=== PATIENT | female | born 1940 | race Caucasian/White ===

== ENCOUNTER → 2016-08-28 | Outpatient (CLI) | payer MEDICARE ==
--- NOTE | 2016-08-28 13:35 | KCIC ---
Bilateral digital screening mammograms with CAD: HISTORY Routine screening. COMPARISON Comparison is made to previous studies dated 08/26/2015 and 08/26/2014. FINDINGS Breast density category B. The skin and nipples show no abnormalities. No abnormal lymph nodes are seen in the axilla. The breast parenchyma shows scattered fibroglandular density. Coarse calcifications is again seen in the upper inner quadrant of the right breast. There are no new dominant masses, suspicious calcifications or architectural distortions. IMPRESSION No evidence of malignancy. Recommend routine annual mammographic screening. This study was interpreted with the benefit of Computerized Aided Detection (CAD). Mammography is not 100% sensitive in detecting breast cancer. Therefore, a self breast exam and a clinical breast exam are very important. A negative mammogram does not negate a clinically suspicious finding and should not result in a delay in biopsying a clinically suspicious abnormality. BI-RADS category 2: Benign. This patient's information has been entered into a reminder system for the patient to be notified with the results of this examination and a target date for her next mammograms. Electronically signed by: Chloe Hernández MD (Aug 28, 2016 13:34:12)
== END | disposition home or self-care (01) ==
LOC: KCIC MAMMO 12:32
PROVIDERS: ATTEND Family Medicine
DX: Z12.31 Encounter for screening mammogram for malignant neoplasm of breast (principal)
CPT/HCPCS: G0202; 77067

== ENCOUNTER 2017-08-03 15:02 | Emergency (ER) | payer MEDICARE ==
[2017-08-03] MEDS: KETOROLAC 60 MG/2 ML INJ. IM ×2 (16:28)
== END 2017-08-03 18:34 | disposition home or self-care (01) ==
LOC: ER 15:02
DX: S76.012A Strain of muscle, fascia and tendon of left hip, initial encounter (principal); M62.830 Muscle spasm of back; E78.00 Pure hypercholesterolemia, unspecified; M19.90 Unspecified osteoarthritis, unspecified site; M06.9 Rheumatoid arthritis, unspecified; Z88.0 Allergy status to penicillin; X58.XXXA Exposure to other specified factors, initial encounter; Y93.89 Activity, other specified; Y92.89 Other specified places as the place of occurrence of the external cause; Y99.8 Other external cause status
CPT/HCPCS: 73502; 96372; 99284-25; J1885

== ENCOUNTER → 2017-08-29 | Outpatient (CLI) | payer MEDICARE | END | disposition home or self-care (01) | LOC: KCIC MAMMO 09:38 | DX: Z12.31 Encounter for screening mammogram for malignant neoplasm of breast (principal) | CPT/HCPCS: 77067 ==

== ENCOUNTER → 2017-09-13 | Outpatient (CLI) | payer MEDICARE | END | disposition home or self-care (01) | LOC: KCIC MRI 12:20 | DX: M51.16 Intervertebral disc disorders with radiculopathy, lumbar region (principal); M48.061 Spinal stenosis, lumbar region without neurogenic claudication; M25.78 Osteophyte, vertebrae | CPT/HCPCS: 72148 ==

== ENCOUNTER → 2017-10-18 | Outpatient (CLI) | payer MEDICARE ==
[~2017-10-18] MED LIST: IOHEXOL 180 MG/ML 10 ML VIAL.; methylPREDNISolone ACETATE 40 MG/ML VIAL.; methylPREDNISolone ACETATE 80 MG/ML VIAL.
== END ==
LOC: PNCL 09:27
DX: M51.16 Intervertebral disc disorders with radiculopathy, lumbar region (principal); I10 Essential (primary) hypertension; E89.0 Postprocedural hypothyroidism; M54.5 Low back pain; M79.662 Pain in left lower leg; Z88.0 Allergy status to penicillin; Z91.040 Latex allergy status; Z90.49 Acquired absence of other specified parts of digestive tract; Z98.49 Cataract extraction status, unspecified eye
CPT/HCPCS: 62323; J1030; J1040; Q9965

== ENCOUNTER → 2017-11-01 | Outpatient (CLI) | payer MEDICARE | END | disposition home or self-care (01) | LOC: PNCL 09:41 | DX: M51.16 Intervertebral disc disorders with radiculopathy, lumbar region (principal) | CPT/HCPCS: G0463 ==

== ENCOUNTER → 2018-01-24 | Outpatient (CLI) | payer MEDICARE | END | disposition home or self-care (01) | LOC: KCIC US 10:46 | DX: E04.2 Nontoxic multinodular goiter (principal); I10 Essential (primary) hypertension; E78.00 Pure hypercholesterolemia, unspecified; E89.0 Postprocedural hypothyroidism; Z90.49 Acquired absence of other specified parts of digestive tract | CPT/HCPCS: 76536 ==

== ENCOUNTER → 2018-02-11 | Outpatient (CLI) | payer MEDICARE ==
[2017-08-03 18:06] VITALS: BP 147/67
[~2018-02-11] MED LIST changes: +ASPI-482 PO; +CALC-584 PO; +CALC1TAB75 PO; +CYCL10TA2 PO; +FOLI1TAB16 PO; +IBUP200T77 PO; -IOHEXOL 180 MG/ML 10 ML VIAL.; +LIDOCAINE 1% Multi-Dose 50 ML VIAL. INJ ONE; +LOVA40TA2 PO; +METH2.5T PO; +METO-269 PO; -methylPREDNISolone ACETATE 40 MG/ML VIAL.; -methylPREDNISolone ACETATE 80 MG/ML VIAL.
--- NOTE | 2018-02-11 12:45 | RAD ---
Ultrasound-guided right thyroid biopsy, 02/11/2018: History: Multinodular goiter The previous ultrasound study demonstrated multiple nodules within both lobes of the gland. We first targeted a large dominant bilobed heterogeneous nodule in the right lobe. Under local anesthesia, aseptic conditions and sonographic guidance a 25-gauge needle was passed into this nodule via an anteromedial approach. 4 separate aspirates were obtained from this right nodule in this manner with the materials sent to pathology for evaluation. Ultrasound-guided left thyroid biopsy, 02/11/2018: The left lobe of the gland demonstrated multiple confluent nodules. We targeted the most discrete nodule in the lower pole of the left lobe of the gland. Under local anesthesia, aseptic conditions and sonographic guidance a 25-gauge was passed into this area via an anteromedial approach. 4 separate aspirates were obtained in this manner and sent to pathology for evaluation. Hemostasis was then obtained. The patient tolerated the procedures well and left the department in good condition. The pathology results are pending.
--- NOTE | 2018-02-12 16:07 | PATHOLOGY ---
Note [facility] Accession Number: [id number] TESTS RESULT FLAG UNITS REF RANGE LAB Clinician Provided Cytology Information No. of containers..01 Other (Miscellaneous) Source: LT THYROID DIAGNOSIS: LT THYROID NEGATIVE FOR MALIGNANT CELLS. [place] CATEGORY II. SPECIMEN CONSISTS OF BENIGN FOLLICULAR CELLS, HEMOSIDERIN-LADEN MACROPHAGES, COLLOID, AND BLOOD. THIS PATTERN IS CONSISTENT WITH A COLLOID NODULE. COMMENT; THE SPECIMEN IS POORLY CELLULAR AND THE MATERIAL ASPIRATED MAY NOT BE PRODUCT MANAGER. SUGGEST CLINICAL CORRELATION AND FOLLOW UP CLINICALLY INDICATED. Pathologist ICD10: 02 E04.1 Signed out by: Charles Cook MD, Pathologist NPI- [id number] Performed by: Ashtyn Laura, Rail Bender ([facility]) Gross description: 01 30ML, PINK, CLOUDY /LCS FLAG LEGEND: L-Low Normal,H-High Normal,LL-Alert Low,HH-Alert High <-Panic Low,>-Panic High,A-Abnormal,AA-Critical Abnormal Performed at: [facility] [address] [place] [address] Nirav Fontaine MD, 02 MECHE [facility] [address] [address] Ezio Burgos MD, Performed at: [address] [id number] MD Nirav Fontaine MD Phone: [phone]
== END | disposition home or self-care (01) ==
LOC: US 14:00
PROVIDERS: ATTEND Family Medicine
DX: E04.2 Nontoxic multinodular goiter (principal); I10 Essential (primary) hypertension; E89.0 Postprocedural hypothyroidism; E78.00 Pure hypercholesterolemia, unspecified; Z88.0 Allergy status to penicillin; Z90.49 Acquired absence of other specified parts of digestive tract; Z79.82 Long term (current) use of aspirin; Z79.1 Long term (current) use of non-steroidal anti-inflammatories (NSAID); Z79.899 Other long term (current) drug therapy
CPT/HCPCS: 10022; 60300; 76942; 88173

== ENCOUNTER → 2018-03-12 | Outpatient (CLI) | payer MEDICARE ==
[2017-08-03 18:06] VITALS: BP 147/67
[~2018-03-12] MED LIST changes: +IOHEXOL 180 MG/ML 10 ML VIAL. ONE; -LIDOCAINE 1% Multi-Dose 50 ML VIAL. INJ ONE; +LIDOCAINE 2% PF 2ML VIAL. ONE; +methylPREDNISolone ACETATE 40 MG/ML VIAL. ONE; +methylPREDNISolone ACETATE 80 MG/ML VIAL. ONE
--- NOTE | 2018-03-12 19:10 | PAIN ---
DATE OF SERVICE: 03/12/2018 DIAGNOSES: Lumbar radiculopathy with lumbar herniated disk, lumbar degenerative disk disease. HISTORY OF PRESENT ILLNESS: The patient is a 77-year-old female who returns for followup status post lumbar epidural steroid injection x 1, 10/18/2017. The patient did very well with near 100% improvement until the last 2 weeks, the pain began to return in the low back and left lower extremity, posterior gluteus, posterior lateral thigh, lateral anterior thigh, medial thigh and posterior calf on the left side only. The patient reports it is a 9 on a scale of 10 at its worst, 9 on average, 6 at its least and is a 9 today. The patient reports it is aching, sharp, dull, tight, shooting, becoming more severe and radiating into the left leg; worse with walking, standing, change in positions. Initially, she was doing very well, was increasing her activity distance walking, able to do household activities and recreational activities, traveling with much greater ease and comfort, again doing very well, almost 100% until the last 2 weeks. The patient reports no new motor or sensory deficits, does not awaken her from sleep at night. No new bowel or bladder incontinence or other complaints. PHYSICAL EXAMINATION: VITAL SIGNS: The patient's blood pressure 139/70, pulse 56, respirations 18, temperature is 98.3 degrees Fahrenheit, height is 5 feet 3 inches, weight is 108 pounds. GENERAL: The patient is awake, alert, oriented, appropriate, very pleasant demeanor. HEENT: Head is normocephalic, atraumatic. Extraocular movements intact and symmetrical. Oral cavity: Mucous membranes are moist and pink. Dentition is intact. NECK: Shows anterior throat supple without palpable lymphadenopathy noted. Swallow reflex is symmetrical. CHEST: Shows normal on inspection. Breath sounds clear to auscultation bilaterally. HEART: Shows S1, S2 clear. No murmurs auscultated. ABDOMEN: Soft, nontender, nondistended. No palpable organomegaly is noted. No rebound or guarding demonstrated. BACK: Shows spine grossly in the midline. Normal appearing thoracic kyphosis and lumbar lordotic curvature. Lumbar paraspinous musculature shows symmetrical on inspection, with palpation shows some moderate tenderness but only diffusely without radiation. EXTREMITIES: The patient's lower extremities show deep tendon reflexes at 2+ in the patella, 1+ tendo calcaneus tendons. Motor exam is approximately 4 on a scale 5 with left dorsiflexion, extension, 5/5 on the right. Options were discussed with the patient. The patient's old chart was reviewed as her current medication regimen and updated. Current review of systems is updated today as well. We will proceed with a lumbar epidural injection today with fluoroscopic guidance. Risks were again discussed including, but not limited to bleeding, infection, possibility of epidural hematoma and subsequent neurological compromise, dural puncture, headaches, spinal cord and/or nerve damage, side effects of steroid medication and poor results regarding pain control. The patient understands and wished to proceed. The patient to return to clinic in approximately 2 weeks for followup. She was counseled to return appointment, activity level and side effects to be aware of. DIAGNOSES: Lumbar radiculopathy with lumbar herniated disk and lumbar degenerative disk disease. PROCEDURE: Lumbar epidural steroid injection, translaminar approach L4-L5 level using C-arm fluoroscopic guidance under sterile prep and drape using local anesthetic. MEDICATION INJECTED: A total of 120 mg Depo-Medrol plus 10 mL of preservative-free normal saline and 2 mL of Isovue for contrast. CONDITION AT DISCHARGE: Stable. The patient tolerated the procedure well, had no complications. PIPO TRIMBLE MD DR: JAZZ/asim JOB#: [id number] / [id number]
== END | disposition home or self-care (01) ==
LOC: PNCL 13:07
PROVIDERS: ATTEND Anesthesiology
DX: M51.16 Intervertebral disc disorders with radiculopathy, lumbar region (principal); Z88.0 Allergy status to penicillin
CPT/HCPCS: 62323; J1030; J1040; J2001; Q9965

== ENCOUNTER → 2018-04-11 | Outpatient (CLI) | payer MEDICARE ==
[2017-08-03 18:06] VITALS: BP 147/67
[~2018-04-11] MED LIST changes: +IBUP-1027 PO; +LIDOCAINE 1% PF 2 ML VIAL. ONE; -LIDOCAINE 2% PF 2ML VIAL. ONE; +MULT1TAB52 PO
--- NOTE | 2018-04-12 00:34 | PAIN ---
DATE OF SERVICE: 04/11/2018 PROGRESS NOTE FOR PAIN CLINIC DIAGNOSES: Lumbar radiculopathy with lumbar degenerative disk disease and lumbar herniated disk. HISTORY OF PRESENT ILLNESS: The patient is a 77-year-old female who returns for followup status post lumbar epidural steroid injection x 2 first on 10/18/2017 and a second one on 03/12/2018. The patient did well with these reports the first one helped better than the last with about 99% improvement in the first but with this one only about 50% improvement, still pain in the low back, left lower extremity as it was previously. The patient reports it is 8-9 on a scale of 10 at its average, 9 on its worst, 2 when sitting and its least and is an 8 today. The patient reports it is aching, tingling, stabbing, shooting off and on with sitting and walking and has a cold wet sensation on the lower leg on the lateral aspect. The patient reports no new motor or sensory deficits and no new bowel or bladder incontinence or other complaints. There is still significant pain with walking, standing, change in positions. Initially, she was walking greater distances more easily doing household activities with greater ease and comfort but recently the pain is beginning to return. The patient reports no new changes and no bowel or bladder incontinence or other complaints. PHYSICAL EXAMINATION: VITAL SIGNS: The patient's blood pressure 151/80, pulse 68, respirations are 18 and temperature 97.9 degrees Fahrenheit. Height is 5 feet 3 inches and weighs 110 pounds. GENERAL: The patient is awake, alert, oriented, appropriate and very pleasant demeanor. HEENT: Head shows normocephalic and atraumatic. Extraocular muscles are intact and symmetrical. Oral cavity: Mucous membranes moist and pink. Dentition is intact. NECK: Shows anterior throat with a fairly palpable goiter and a well-healed surgical scar and both right and left fullness of the throat itself. CHEST: Shows normal on inspection. Breath sounds clear to auscultation bilaterally. HEART: Shows S1 and S2 clear. No murmurs auscultated. ABDOMEN: Soft, nontender and nondistended. No palpable organomegaly is noted. No rebound or guarding demonstrated. BACK: Shows spine grossly in the midline. Mild exaggeration of thoracic kyphosis. The patient's lumbar spine shows moderate tenderness with palpation bilaterally in the middle and lower distribution of the paraspinous muscles but only diffusely without atrophy or hypertrophy. The patient has good rotational motion bilaterally without significant increase in pain. EXTREMITIES: The patient's lower extremities show deep tendon reflexes at 2+ in the patellar, 1+ tendo-calcaneus tendons. Motor exam is strong with approximately 4 on a scale of 5 left dorsiflexion and extension, 5/5 on the right. Peripheral pulses are 1+. No peripheral edema is noted. Options were discussed with the patient. The patient's old chart was reviewed as well as her current medication regimen updated. Current review of systems updated today as well. We will proceed with a third in a series of lumbar epidural steroid injection today with fluoroscopic guidance. Risks were again discussed including, but not limited to bleeding, infection, possibility of epidural hematoma, subsequent neurological compromise, dural puncture, headaches, spinal cord and/or nerve damage, side effects of steroid medication and poor results regarding pain control. The patient understands and wished to proceed. The patient will return to the clinic in approximately 2 weeks for followup, was counseled as to return appointment, activity level and side effects to be aware of. DIAGNOSES: Lumbar radiculopathy with lumbar degenerative disk disease and lumbar herniated disk. PROCEDURE: Lumbar epidural steroid injection, translaminar approach, L4-L5 level using C-arm fluoroscopic guidance under sterile prep and drape using local anesthetic. MEDICATION INJECTED: A total of 120 mg Depo-Medrol plus 10 mL of preservative-free normal saline and 2 mL of Isovue for contrast. CONDITION AT DISCHARGE: Stable. The patient tolerated the procedure well and had no complications. PIPO TRIMBLE MD DR: JAZZ/asim JOB#: [id number] / [id number]
== END | disposition home or self-care (01) ==
LOC: PNCL 11:06
PROVIDERS: ATTEND Anesthesiology
DX: M51.16 Intervertebral disc disorders with radiculopathy, lumbar region (principal); Z88.0 Allergy status to penicillin
CPT/HCPCS: 62323; J1030; J1040; Q9965

== ENCOUNTER → 2018-06-13 | Outpatient (CLI) | payer MEDICARE ==
[2017-08-03 18:06] VITALS: BP 147/67
[~2018-06-13] MED LIST changes: +GABA-585 PO; +LEVO75TA5 PO; -LIDOCAINE 1% PF 2 ML VIAL. ONE
--- NOTE | 2018-06-13 14:41 | PAIN ---
DATE OF SERVICE: 06/13/2018 DIAGNOSES: Lumbar radiculopathy with lumbar degenerative disk disease, lumbar herniated disk. HISTORY OF PRESENT ILLNESS: The patient is a 77-year-old female who returns for a followup status post lumbar epidural steroid injections x 3, most recently on 04/11. The patient did very well with about 80% improvement after the last injection. The patient reports no new motor or sensory deficits or other complaints. The pain is returning now. She was initially increasing her distance walking, doing household activities, traveling with better ease and comfort. The patient reports it is beginning to return now in the low back and left lower extremity, in the posterior gluteus, posterior lateral thigh, lateral anterior thigh, anterior medial thigh, and medial lower leg. It is aching, sharp, shooting, stabbing, tingling, on and off in intensity, worse with walking and standing, better with sitting or lying down, does not awaken her from sleep at night. The patient reports no new motor or sensory deficits, no new bowel or bladder incontinence or other complaints. PHYSICAL EXAMINATION: VITAL SIGNS: The patient's blood pressure is 114/67, pulse is 71, respirations are 18, temperature is 98.0 degrees Fahrenheit, height is 5 feet 3 inches, weight is 112 pounds. GENERAL: The patient is awake, alert, oriented, appropriate, very pleasant demeanor. HEENT: Shows normocephalic, atraumatic. Extraocular movements are intact and symmetrical. Oral cavity shows mucous membranes are moist and pink. Dentition is intact. NECK: Shows anterior throat supple without palpable lymphadenopathy noted. Swallow reflex is symmetrical. CHEST: Shows normal on inspection. Breath sounds are clear to auscultation bilaterally. HEART: Shows S1, S2 clear. No murmurs auscultated. ABDOMEN: Soft, nontender, nondistended. No palpable organomegaly is noted. No rebound or guarding demonstrated. MUSCULOSKELETAL: Back shows spine grossly in the midline, normal appearing thoracic kyphosis and lumbar lordotic curvature. Lumbar paraspinous muscle shows symmetrical on inspection; on palpation shows some moderate tenderness diffusely, but without radiation. The patient has good rotational motion of lumbar spine, both laterally as well as extension and flexion. The patient's lower extremities show deep tendon reflexes at 2+ in the patellar, 1+ tendo-calcaneus tendons. Motor exam is strong with 4/5 on left and 5/5 on right dorsiflexion and extension. Peripheral pulses are 1+ posterior tibia. No peripheral edema is noted bilaterally. PLAN: Options were discussed with the patient. The patient's old chart was reviewed as her current medication regimen and updated. Current review of systems updated today as well. We will proceed with a first in the series of lumbar epidural steroid injection today with fluoroscopic guidance. Risks were again discussed including, but not limited to, bleeding, infection, possibility of epidural hematoma, subsequent neurological compromise, dural puncture, headaches, spinal cord and/or nerve damage, side effects of steroid medication and poor results regarding pain control. The patient understands and wished to proceed. The patient will return to clinic in approximately 2 weeks for a followup, was counseled on return appointment, activity level and side effects to be aware of. DIAGNOSES: Lumbar radiculopathy with lumbar degenerative disk disease, lumbar herniated disk. PROCEDURE: Lumbar epidural steroid injection, translaminar approach, L4-L5 level using C-arm fluoroscopic guidance under sterile prep and drape using local anesthetic. MEDICATION INJECTED: A total of 120 mg of Depo-Medrol plus 10 mL of preservative-free normal saline and 2 mL of Isovue for contrast. CONDITION AT DISCHARGE: Stable. The patient tolerated procedure well, had no complications. PIPO TRIMBLE MD DR: JAZZ/asim JOB#: [id number] / [id number]
== END | disposition home or self-care (01) ==
LOC: PNCL 10:05
PROVIDERS: ATTEND Anesthesiology
DX: M51.16 Intervertebral disc disorders with radiculopathy, lumbar region (principal); Z88.0 Allergy status to penicillin
CPT/HCPCS: 62323; J1030; J1040; Q9965

== ENCOUNTER → 2018-09-12 | Outpatient (CLI) | payer MEDICARE ==
[2017-08-03 18:06] VITALS: BP 147/67
[~2018-09-12] MED LIST changes: -IOHEXOL 180 MG/ML 10 ML VIAL. ONE; -methylPREDNISolone ACETATE 40 MG/ML VIAL. ONE; -methylPREDNISolone ACETATE 80 MG/ML VIAL. ONE
--- NOTE | 2018-09-12 13:18 | KCIC ---
Bilateral digital screening mammograms: Reason for examination: Routine screening. Comparison is made to previous studies dated 08/29/2017 and 08/28/2016. Interpretation was made with the benefit of CAD. The skin and nipples show no abnormalities. No abnormal axillary lymph nodes are seen. The breast parenchyma shows scattered fibroglandular density. (Breast density: Category B.) There are no dominant masses, suspicious calcifications or architectural distortions. Benign calcifications are seen. Impression: No evidence of malignancy. Recommend routine screening. BI-RADS Category 1: Negative. "Our facility is accredited by the [employer] Mammography Program." This patient's information has been entered into a reminder system for the patient to be notified with the results of her examination and a target date for the next mammogram. Electronically signed by: Chary Hernández MD (09/12/2018 1:15 PM) [id number]
== END | disposition home or self-care (01) ==
LOC: KCIC MAMMO 09:41
PROVIDERS: ATTEND Family Medicine
DX: Z12.31 Encounter for screening mammogram for malignant neoplasm of breast (principal)
CPT/HCPCS: 77067

== ENCOUNTER → 2018-10-11 | Outpatient (CLI) | payer MEDICARE ==
[2017-08-03 18:06] VITALS: BP 147/67
[~2018-10-11] MED LIST changes: +IOHEXOL 180 MG/ML 10 ML VIAL. ONE; +methylPREDNISolone ACETATE 40 MG/ML VIAL. ONE; +methylPREDNISolone ACETATE 80 MG/ML VIAL. ONE
--- NOTE | 2018-10-12 04:05 | PAIN ---
DATE OF SERVICE: 10/11/2018 DIAGNOSIS: Lumbar radiculopathy with lumbar degenerative disk disease and lumbar herniated disk. HISTORY OF PRESENT ILLNESS: The patient is a 77-year-old female who returns for followup status post lumbar epidural steroid injection x 1 on 06/13/2018. The patient did very well, reports about 90% improvement until the last 2 weeks the pain began to return in the low back and left lower extremity. The patient reports no new injuries or accidents, pain is increasing over time, getting worse, radiating across the low back into the posterior gluteus, posterior thigh, posterolateral thigh, lateral anterior thigh, anterior medial thigh, medial knee and medial lower leg and ankle. The patient reports it is aching, shooting, tingling at times, sometimes stabbing in the back. Reports it is 8-9 on a scale of 10 at its worst, 8 on average, 7 at its least and is 8 today. The patient reports no new motor or sensory deficits, no new bowel or bladder incontinence. Initially, she increased her distance walking and doing activities, traveling with greater ease and comfort, now the pain is returning and eliminating most of these activities. The patient reports still better with sitting or lying down, wakes her from sleep occasionally, but not every night. No new motor or sensory deficits. No new bowel or bladder incontinence or other complaints. PHYSICAL EXAMINATION: VITALS SIGNS: Blood pressure is 148/70, pulse is 81, respirations are 18, temperature IS 98.2 degrees Fahrenheit, weight is 122 pounds. GENERAL: The patient awake, alert, oriented, appropriate, very pleasant demeanor. HEENT: Shows normocephalic, atraumatic. Extraocular movements are intact and symmetrical. Oral cavity shows mucous membranes are moist and pink. Dentition is intact. NECK: Shows anterior throat supple without palpable lymphadenopathy noted. Swallow reflex is symmetrical. CHEST: Shows normal on inspection. Breath sounds are clear to auscultation bilaterally. HEART: Shows S1, S2 clear. No murmurs auscultated. ABDOMEN: Soft, nontender, nondistended. No palpable organomegaly is noted. No rebound or guarding demonstrated. MUSCULOSKELETAL: Back shows spine grossly in the midline, normal-appearing cervical lordotic curvature, thoracic kyphotic curvature and lumbar lordotic curvature. Lumbar paraspinous muscle shows symmetrical on inspection, on palpation shows some moderate tenderness diffusely, but only diffusely without radiation. The patient has good rotational motion of lumbar spine both laterally greater than 10 degrees right and left as well as extension greater than 10 degrees, forward flexion 45 degrees without pain reported. EXTREMITIES: Lower extremities show deep tendon reflexes 2+ in the patellar, 1+ tendo-calcaneus tendons. Motor exam is approximately 4 on a scale of 5 with left dorsiflexion and extension and 5/5 in the right. Peripheral pulses are 1+ posterior tibia. No peripheral edema is noted bilaterally. Options were discussed with the patient. The patient's old chart was reviewed as was her current medication regimen updated. Current review of systems updated today as well. We will proceed with a second lumbar epidural steroid injection today with fluoroscopic guidance. Risks were again discussed including but not limited to bleeding, infection, possibility of epidural hematoma, subsequent neurologic compromise, dural puncture, headache, spinal cord and/or nerve damage, side effects of steroid medication and poor results regarding pain control. The patient understands and wished to proceed. The patient will return to clinic in approximately 2 weeks for followup. She was counseled as to return appointment, activity level and side effects to be aware of. DIAGNOSIS: Lumbar radiculopathy with lumbar degenerative disk disease and lumbar herniated disk. PROCEDURE: Lumbar epidural steroid injection, translaminar approach at the L4-L5 level using C-arm fluoroscopic guidance under sterile prep and drape using local anesthetic. MEDICATIONS INJECTED: A total of 120 mg of Depo-Medrol plus 2 mL of preservative-free normal saline, 2 mL of isovue for contrast. CONDITION AT DISCHARGE: Stable. The patient tolerated the procedure well, had no complications. PIPO TRIMBLE MD DR: JAZZ/asim JOB#: [id number] / [id number]
== END | disposition home or self-care (01) ==
LOC: PNCL 09:51
PROVIDERS: ATTEND Anesthesiology
DX: M51.16 Intervertebral disc disorders with radiculopathy, lumbar region (principal); Z88.0 Allergy status to penicillin; Z91.040 Latex allergy status
CPT/HCPCS: 62323; J1030; J1040; Q9965

== ENCOUNTER → 2018-10-14 | Day surgery (SDC) | payer MEDICARE ==
[~2018-10-14] MED LIST changes: -IOHEXOL 180 MG/ML 10 ML VIAL. ONE; +IV RINGERS,LACTATED 1000ML 1,000 ML IV SCH; +LIDOCAINE 1% PF 2 ML VIAL. ID PRN; +MIDAZOLAM HCL/PF 2 MG/2 ML VIAL. IV PRN; +PROPOFOL 40 ML IV ONE; +fentaNYL PF VIAL 100 MCG/2 ML VIAL IV PRN; -methylPREDNISolone ACETATE 40 MG/ML VIAL. ONE; -methylPREDNISolone ACETATE 80 MG/ML VIAL. ONE
--- NOTE | 2018-10-14 13:55 | PDOC1 ---
History and Physical Date of Admission Date of Admission DATE: 10/14/18 TIME: 13:49 Source Source: Chart review, Patient History of Present Illness History of Present Illness Iron deficiency recently noted. No symptoms other than recent "narrow" stools. Occasional dyspepsia. GIFH positive for pancreatic Ca in mother. Daily NSAID use. Otherwise no GI complaints or history. Past Medical History Cardiovascular: Hyperlipidemia Psych: Depression Rheumatologic: Rheumatoid arthritis Past Surgical History Past Surgical History: Appendectomy (thyroidectomy, "eye surgery") Family History Family History Otherwise unremarkable. Social History Smoke: No ALCOHOL: none Drugs: None Current Medications Current Medications Current Medications Midazolam HCl (Versed) 2 mg PRN 1X PRN IV PRIOR TO PROCEDURE; Start 10/14/18 at 11:00; Stop 10/15/18 at 10:59 Fentanyl Citrate (Fentanyl 2ml Vial) 25 mcg PRN Q5MIN PRN IV X 2 DOSES FOR PAIN; Start 10/14/18 at 11:00; Stop 10/15/18 at 10:59 Fentanyl Citrate (Fentanyl 2ml Vial) 50 mcg PRN Q5MIN PRN IV X 2 DOSES FOR PAIN; Start 10/14/18 at 11:00; Stop 10/15/18 at 10:59 Ringer's Solution 1,000 ml @ 125 mls/hr Q8H IV Last administered on 10/14/18at 10:46; Start 10/14/18 at 10:46; Stop 10/14/18 at 22:45 Lidocaine HCl (Xylocaine-Mpf 1% 2ml Vial) 2 ml 1X PRN PRN ID IV START; Start 10/14/18 at 11:00; Stop 10/15/18 at 10:59 Propofol 40 ml @ As Directed STK-MED ONCE IV ; Start 10/14/18 at 13:40; Stop 10/14/18 at 13:41; Status DC Active Scripts Active Reported Levothyroxine Sodium 75 Mcg Tablet 1 Tab PO DAILY Gabapentin (Gabapentin) 100 Mg Capsule 100 Mg PO TID Multivitamins (Multivitamin) 1 Each Tablet 1 Tab PO DAILY Ibuprofen 400 Mg Tablet 400 Mg PO PRN Q6HRS PRN Methotrexate (Methotrexate Sodium) 2.5 Mg Tablet 4 Tab PO WEEKLY Calcium 600 + Vit D 200 Tablet (Calcium Carbonate/Vitamin D3) 1 Each Tablet 1 Each PO Lovastatin 40 Mg Tablet 40 Mg PO HS Folic Acid 1 Mg Tablet 1 Tab PO DAILY Toprol Xl (Metoprolol Succinate) 50 Mg Tab.er.24h 1 Tab PO DAILY Ibuprofen 200 Mg Tablet 200 Mg PO PRN Q6HRS PRN Calcium 500-Vit D3 600 Tablet (Calcium Carbonate/Vitamin D3) 1 Each Tablet 1 Eac h PO Allergies Allergies: Coded Allergies: latex (Verified Allergy, Severe, swelling, 10/14/18) Penicillins (Verified Allergy, Intermediate, 10/14/18) ROS Review of System Otherwise negative. Physical Exam General: Alert, Oriented X3, Cooperative, No acute distress Lungs: Clear to auscultation, Normal air movement Heart: S1S2, RRR, no gallops, no murmurs Abdomen: Normal bowel sounds, Soft, No tenderness, No hepatosplenomegaly, No masses Rectal Exam: deferred (to procedure) Extremities: No cyanosis, No edema Skin: No significant lesion Neuro: Normal speech, Strength at 5/5 X4 ext, Normal tone, Sensation intact, Cranial nerves 3-12 NL, Reflexes 2+ Psych/Mental Status: Mental status NL, Mood NL Vitals Vitals Vital Signs Date Time Temp Pulse Resp B/P (MAP) Pulse Ox O2 Delivery O2 Flow Rate FiO2 10/14/18 13:29 98.6 83 20 97 98.6 VTE Prophylaxis Ordered VTE Prophylaxis Devices: No VTE Pharmacological Prophylaxi: No Assessment/Plan Assessment/Plan IMP: BELKIS Dyspepsia Daily NSAID use. No prior endoscopy. PLAN: colonoscopy and EGD. ELPIDIO HARP MD Oct 14, 2018 13:55
[2018-10-14 14:40] VITALS: BP 120/70
--- NOTE | 2018-10-14 14:40 | PDOC4 ---
PROCEDURE Procedure EGD/colonoscopy Indications: Screening, no prior; dyspepsia, microcytic anemia. Meds: per anesthesia. Findings: E--Grade A at 39cm G--generallized atrophy. Biopsies antrum and fundus. D--Normal to third portion. Biopsies second. JAN--Normal --'Scoped advanced to cecum. Mucosa normal. Scattered diverticula, sigmoid. No polyps, masses, etc. Small internal hemorrhoids on retroflex. Johana. well. IMP: GERD Atrophic gastritis? Diverticulosis. Small internal hemorrhoids. REC: await path. f/u in 2 weeks. Consider SBCE if no answers from path. ELPIDIO HARP MD Oct 14, 2018 14:40
--- NOTE | 2018-10-15 16:06 | PATHOLOGY ---
[facility] [place] Accession Number: [id number] . 01 Material submitted: . PART A: duodenum - DUODENAL BIOPSY PART B: stomach - ANTRUM BIOPSY PART C: stomach - FUNDUS BIOPSY. Modifiers: fundus . 01 Clinical history: . None provided . 02 Diagnosis: A. Duodenal biopsies: - No significant pathologic abnormalities. . B. Gastric biopsies, antrum: - Chronic gastritis, moderate. . C. Gastric biopsies, fundus: - Active chronic gastritis, moderate, with rare Helicobacter organisms identified. (JPM:chin; 10/15/2018) QMS/10/15/2018 . 02 Comment: Sections of the duodenal biopsy reveal segments of small intestine mucosa. Where best oriented, there are no sprue-like changes or significant inflammatory changes. . Sections of the gastric antral biopsy show congestion and moderate chronic inflammation. A properly controlled immunoperoxidase stain for Helicobacter is negative for Helicobacter organisms. . Sections of the gastric fundic biopsy show moderate active chronic inflammation. A properly controlled immunoperoxidase stain for Helicobacter reveals rare Helicobacter organisms. There is no evidence of malignancy. (JPM:chin; 10/15/2018) . . Special stains performed: Immunoperoxidase stains for Helicobacter on B1 and C1. . 02 Electronically signed: . Alex Dos Santos MD, Pathologist NPI- [id number] . 01 Gross description: . A. Received in formalin labeled "Ese, Cherise, duodenal biopsy," are 2 segments of perez soft tissue measuring 0.7 x 0.3 x 0.2 cm in aggregate dimensions and ranging from 0.3 to 0.4 cm in maximum dimension. The specimen is submitted entirely in cassette A1. . B. Received in formalin labeled "Ese, Cherise, antrum biopsy," are 2 segments of perez soft tissue measuring 0.9 x 0.2 x 0.1 cm in aggregate dimensions and ranging from 0.4 to 0.5 cm in maximum dimension. The specimen is submitted entirely in cassette B1. . C. Received in formalin labeled "Ese, Cherise, fundus, biopsy," are 4 segments of perez soft tissue measuring 1.0 x 0.8 x 0.1 cm in aggregate dimensions and ranging from 0.2 to 0.5 cm in maximum dimension. The specimen is submitted entirely in cassette C1. (TSD; 10/14/2018) TOB/TOB . 02 Pathologist provided ICD-10: K29.50, B96.81 . 02 CPT . 926282, 013964, 603453, [id number], [id number] Specimen Comment: A courtesy copy of this report has been sent to Specimen Comment: [phone], . Specimen Comment: Report sent to / DR BLACK Performed at: 01 [facility] [address], [place], [place] [id number] MD Nirav Fontaine MD Phone: [phone] Performed at: 02 [facility] [address] [place], [place] [id number] MD Alex Dos Santos MD Phone: [phone]
== END | disposition home or self-care (01) ==
LOC: ENDOS 12:55
PROVIDERS: ATTEND Internal Medicine Gastroenterology
DX: K21.0 Gastro-esophageal reflux disease with esophagitis (principal); K57.30 Diverticulosis of large intestine without perforation or abscess without bleeding; K29.40 Chronic atrophic gastritis without bleeding; K64.0 First degree hemorrhoids; F32.9 Major depressive disorder, single episode, unspecified; E78.00 Pure hypercholesterolemia, unspecified; Z88.0 Allergy status to penicillin; Z91.040 Latex allergy status; M19.90 Unspecified osteoarthritis, unspecified site; D50.9 Iron deficiency anemia, unspecified; Z79.899 Other long term (current) drug therapy; Z90.49 Acquired absence of other specified parts of digestive tract; Z98.890 Other specified postprocedural states
CPT/HCPCS: 43239; 45378; 88305; 88342; J2704